=== PATIENT | male | born 1960 | race Caucasian/White ===

== ENCOUNTER 2022-10-15 18:25 | Emergency (ER) | payer BC, SELFPAY ==
[2022-10-15 18:32] VITALS: BP 124/62; PULSE 84; RESP 18; TEMP 36.8; O2SAT 97
--- NOTE | 2022-10-15 18:33 | ED.WOUNDLAC ---
HPI - Wound/Laceration General Chief Complaint: Skin/Abscess/Foreign Body Stated Complaint: Rash Rt Leg Source: patient Mode of arrival: ambulatory Limitations: no limitations History of Present Illness HPI narrative: 62 y/o male presented for c/o red rash to right lower leg. Reports warmth to the site and swelling to the ankle. Patient also reports fatigue this morning and fever 102-104. Took aspirin [employer]. Denies significant leg pain, drainage or itching to the site. States he first noticed rash today, though this occurs intermittently over the years. Most recently 02/2022, for which he was treated with clindamycin and hydrocortisone cream with improvement. Denies cp, palpitations, sob, n/v/d. Related Data Home Medications Medication Instructions Recorded Confirmed Saccharomyces boulardii 250 mg 5,000 mmu cells PO DAILY 03/13/22 10/15/22 capsule (Digest Probiotic (S.boulardii)) apple cider vinegar 300 mg tablet 300 mg PO DAILY 03/13/22 10/15/22 ascorbic acid (vitamin C) 1,000 mg 1 g PO DAILY 03/13/22 10/15/22 capsule cholecalciferol (vitamin D3) 50 50 mcg PO DAILY 03/13/22 10/15/22 mcg (2,000 unit) capsule mecobalamin (vitamin B12) 5,000 5,000 mcg PO DAILY 03/13/22 10/15/22 mcg chewable tablet tumeric 100 mg-ramses 150 mg-olive 1 cap PO DAILY 03/13/22 10/15/22 50 mg-oreg 150 mg-caprylate capsule aspirin 81 mg chewable tablet 81 mg PO DAILY 03/31/22 10/15/22 Allergies Allergy/AdvReac Type Severity Reaction Status Date / Time Penicillins AdvReac Mild Unknown Verified 10/15/22 18:48 Review of Systems Review of Systems: CONSTITUTIONAL: Reports fatigue, fever, chills; Denies body aches EYES: Denies visual changes, redness, or discharge. ENT: Denies rhinorrhea, congestion CARDIOVASCULAR: Denies chest pain, palpitations, or edema. RESPIRATORY: Denies cough or dyspnea. GASTROINTESTINAL: Denies abdominal pain, nausea, vomiting, or diarrhea. SKIN: reports red rash right leg MUSCULOSKELETAL: Denies back pain, joint pain, or myalgia. NEUROLOGIC: Denies headache, numbness, tingling, or weakness. [facility] Past Medical History Medical History Dyslipidemia Family History Family History Sibling Malignant neoplasm of prostate Father Diabetes mellitus Social History Social History Smoking status: Smoker, status unknown Alcohol intake: current Drinks per week: 30 Alcohol use details: beer Substance use: never Substance use type: does not use Lack of Transportation: No Lack of Food: Sometimes True Current Housing: I Have Housing Concerned About Future Housing: No Difficulty Paying Gas/Electric Bills: No Difficulty Paying for Meds: No Currently Unemployed: No Difficulty w/ Childcare or Family Care: No Living arrangements: with friend(s) Occupation/Education: occupation Gender identity (if verbalized by the patient): Male Comments At time of signature, I have reviewed and agree with nursing past medical, surgical, social and family history unless otherwise noted. Please see nursing chart for further information. There is no relevant family history pertinent to the presenting complaint Exam Narrative: GENERAL: Well-appearing HEAD: Normocephalic, atraumatic. EYES: conjunctivae clear, and EOMI. ENT: Mucous membranes moist. Oropharynx without edema, erythema or lesions. NECK: Supple. No lymphadenopathy CHEST: Clear to auscultation. HEART: Regular rate and rhythm. SKIN: Warm, dry. Right lower leg with 3+ pitting edema, erythema and warmth circumferential around distal leg, extends to the anterior velasquez, spares approx 25% of the lower leg. No weeping or drainage, nontender. NEURO: Alert and oriented x3. Course Course Emergency Course: Patient is aware of diagnosis, understands and agre
--- NOTE | 2022-10-15 19:06 | PC.NURSE ---
PT REFUSES TRANSFER TO ER. PT SIGNS AMA, HE IS AWARE OF RISKS TO SIGNING OUT AMA.
== END 2022-10-15 19:00 | disposition left against medical advice (07) ==
PROVIDERS: Emergency Provider Nurse Practitioner Family; PCP Family Medicine
DX: L03.115 Cellulitis of right lower limb (principal); E78.5 Hyperlipidemia, unspecified; Z79.82 Long term (current) use of aspirin
CPT/HCPCS: 99213; G0463

== ENCOUNTER 2023-01-15 14:42 | Emergency (ER) | payer BC, SELFPAY ==
[2023-01-15 14:51] VITALS: BP 137/69; PULSE 96; RESP 20; TEMP 37.3; O2SAT 97
--- NOTE | 2023-01-15 15:00 | ED.SKABFB ---
HPI - Skin/Abscess/Foreign Bdy General Chief complaint: Skin/Abscess/Foreign Body Stated complaint: Right Leg Rash Time Seen by Provider: 01/15/23 14:43 Source: patient Mode of arrival: ambulatory Limitations: no limitations History of Present Illness HPI narrative: Luis Miguel is a 62-year-old male patient presenting to the clinic today with complaints of a rash to his right lower leg. He reports that this rash began this morning. States that he had a slight bit of itchiness behind his calf however now it has become red and erythemic. He denies any pain or itching at this time. States he felt some chills earlier today but no known fever. History of cellulitis in the right lower extremity. Denies any environmental changes, soaps, shampoos, detergents, or foods Related Data Home Medications Medication Instructions Recorded Confirmed Saccharomyces boulardii 250 mg 5,000 mmu cells PO DAILY 03/13/22 01/15/23 capsule (Digest Probiotic (S.boulardii)) apple cider vinegar 300 mg tablet 300 mg PO DAILY 03/13/22 01/15/23 ascorbic acid (vitamin C) 1,000 mg 1 g PO DAILY 03/13/22 01/15/23 capsule cholecalciferol (vitamin D3) 50 50 mcg PO DAILY 03/13/22 01/15/23 mcg (2,000 unit) capsule mecobalamin (vitamin B12) 5,000 5,000 mcg PO DAILY 03/13/22 01/15/23 mcg chewable tablet tumeric 100 mg-ramses 150 mg-olive 1 cap PO DAILY 03/13/22 01/15/23 50 mg-oreg 150 mg-caprylate capsule aspirin 81 mg chewable tablet 81 mg PO DAILY 03/31/22 01/15/23 Allergies Allergy/AdvReac Type Severity Reaction Status Date / Time Penicillins AdvReac Mild Hives Verified 01/15/23 14:51 Review of Systems Review of Systems: Pertinent positives per HPI. Patient denies any fever, chills, headache, visual changes, dizziness, cough, runny nose, sore throat, shortness of breath, chest pain, palpitations, nausea, vomiting, diarrhea, constipation, abdominal pain, or any urinary issues. PMFSH Past Medical History Medical History Dyslipidemia Surgical History Surgical History No pertinent past surgical history Family History Family History Sibling Malignant neoplasm of prostate Father Diabetes mellitus Social History Social History Smoking status: Never smoker Alcohol intake: current Drinks per week: 30 Alcohol use details: beer Substance use: never Substance use type: does not use Lack of Transportation: No Lack of Food: Sometimes True Current Housing: I Have Housing Concerned About Future Housing: No Difficulty Paying Gas/Electric Bills: No Difficulty Paying for Meds: No Currently Unemployed: No Difficulty w/ Childcare or Family Care: No Living arrangements: with friend(s) Occupation/Education: occupation Gender identity (if verbalized by the patient): Male Comments At the time of my signature, I reviewed and agree with the nursing past medical, surgical, social, and family history. There is no relevant family history pertinent to the patient complaint. Exam Narrative: General: Well-developed, well nourished, in no apparent distress Head: Normocephalic, atraumatic. Cardio: Regular rate and rhythm, s1 and s2 normal, no murmur appreciated. Resp: Clear to auscultation bilaterally, no rhonchi, rales, wheezing or rubs. Integumentary: [place], warm, and dry, intact without lesion, redness with erythema and 1+ pitting edema to the right lower extremity mainly to the anterior leg, no induration or palpable abscess Course Course Emergency Course: Portions of this record may have been created with voice recognition software. Level of Care: Express Care Visit Vital Signs Vital signs: Vital Signs Temperature 37.3 C 01/15/23 14:51 Pulse Rate 96 01/15/23 1
== END 2023-01-15 15:07 | disposition home or self-care (01) ==
PROVIDERS: Emergency Provider Nurse Practitioner Family; PCP Family Medicine
DX: L03.115 Cellulitis of right lower limb (principal); E78.5 Hyperlipidemia, unspecified; Z79.82 Long term (current) use of aspirin
CPT/HCPCS: 99213; G0463